=== PATIENT | male | born 1980 | race African-American/Black ===

== ENCOUNTER 2024-12-23 17:03 | Emergency (ER) | payer OTHER ==
[~2024-12-23] VITALS: Ht 180.3 cm; Wt 85.0 kg
[~2024-12-23 17:03] MED LIST: ALBU18HF2 IH; AMLO5TAB88 PO; CLIN-194 MT; FLUT1DIS3 INH; P20 PO
[2024-12-23 17:22] VITALS: O2SAT 100
[2024-12-23] MEDS: CEPHALEXIN 250MG CAPSULE PO ONE (18:15)
[2024-12-23] MEDS: LIDOCAINE HCL/EPINEPHRINE 1%-EPI 1:100,000 20ML VIAL INFIL ONE (18:15)
[2024-12-23] MEDS: SULFAMETHOXAZOLE/TRIMETHOPRIM 800/160MG TABLET PO ONE (18:15)
[2024-12-23] MEDS: HYDROCODONE/ACETAMINOPHEN 5/325MG TABLET PO ONE (19:46)
[2024-12-23] MEDS ORDERED: AMLO5TAB88 MT (21:05)
[2024-12-23] MEDS ORDERED: MUPI22OI2 TP (21:05)
[2024-12-23] MEDS ORDERED: CEPH500T MT (21:05)
[2024-12-23] MEDS ORDERED: SULF1TAB48 MT (21:05)
[2024-12-23 21:45] VITALS: BP 141/100; PULSE 76; RESP 18; TEMP 36.7; O2SAT 100
== END 2024-12-23 21:50 | disposition home or self-care (01) ==
LOC: ER 17:03
DX: L02.93 Carbuncle, unspecified (principal); I10 Essential (primary) hypertension; Z76.0 Encounter for issue of repeat prescription
CPT/HCPCS: 99284; J2004; Z7610; A4606